=== PATIENT | male | born 1960 | race Caucasian/White ===

== ENCOUNTER 2022-05-05 08:31 | Day surgery (SDC) | payer BC, SELFPAY ==
[2022-04-21 14:50] VITALS: BMI 36.6
--- NOTE | 2022-05-04 10:41 | P.CONAN_ITS ---
Documented by User: Angeli Greenberg NP 05/04/22 10:41 HPI - Anesthesia Eval Consult details Narrative: 62yo M for Colonoscopy [facility] Past Medical History Medical History (Updated 04/21/22 @ 14:46 by Latisha Zavaleta, RN) Diabetes mellitus HTN (hypertension) Hyperlipidemia Surgical History Surgical History (Updated 04/21/22 @ 14:46 by Latisha Zavaleta, RN) Hx of colonoscopy Social History Social History Patient Tobacco Use Status: Never used Tobacco Use of substances other than those prescribed or required for medical reasons: No Are you DNR?: No Advance Directives: No Advance Directives Information Provided: Yes Meds Allergies Allergy/AdvReac Type Severity Reaction Status Date / Time No Known Allergies Allergy Verified 04/21/22 14:47 Home Medications Medication Instructions Recorded Confirmed Last Taken Type amlodipine 10 mg tablet 10 mg PO DAILY 04/21/22 04/21/22 Unknown History dulaglutide 3 mg/0.5 mL 3 mg subcut QWEEK 04/21/22 04/21/22 Unknown History subcutaneous pen injector (Trulicity) glyburide 2.5 mg tablet 2.5 mg PO DAILY 04/21/22 04/21/22 Unknown History hydrochlorothiazide 12.5 mg tablet 12.5 mg PO DAILY 04/21/22 04/21/22 Unknown History lisinopril 40 mg tablet 40 mg PO DAILY 04/21/22 04/21/22 Unknown History metformin 1,000 mg tablet 1,000 mg PO BIDWMEAL 04/21/22 04/21/22 Unknown History pioglitazone 30 mg tablet (Actos) 30 mg PO DAILY 04/21/22 04/21/22 Unknown History pravastatin 40 mg tablet 40 mg PO DAILY 04/21/22 04/21/22 Unknown History Exam Exam Date and Time: May 04, 2022 1041 Height,Weight and Vital Signs: Height 5 ft 7 in Weight 106.141 kg Assessment and Plan Assessment Anesthesia Assessment: Chart Reviewed Documented by User: Nigel Arrieta MD 05/05/22 10:42 [facility] Past Medical History Medical History (Updated 04/21/22 @ 14:46 by Latisha Zavaleta, RN) Diabetes mellitus HTN (hypertension) Hyperlipidemia Family History Family history of problems with anesthesia: No Surgical History Surgical History (Updated 04/21/22 @ 14:46 by Latisha Zavaleta, RN) Hx of colonoscopy History of Problems with Anesthesia: No Social History Social History Patient Tobacco Use Status: Never used Tobacco Use of substances other than those prescribed or required for medical reasons: No Are you DNR?: No Advance Directives: No Advance Directives Information Provided: Yes Meds Allergies Allergy/AdvReac Type Severity Reaction Status Date / Time No Known Allergies Allergy Verified 04/21/22 14:47 Home Medications Medication Instructions Recorded Confirmed Last Taken Type amlodipine 10 mg tablet 10 mg PO DAILY 04/21/22 04/21/22 Unknown History dulaglutide 3 mg/0.5 mL 3 mg subcut QWEEK 04/21/22 04/21/22 Unknown History subcutaneous pen injector (Trulicity) glyburide 2.5 mg tablet 2.5 mg PO DAILY 04/21/22 04/21/22 Unknown History hydrochlorothiazide 12.5 mg tablet 12.5 mg PO DAILY 04/21/22 04/21/22 Unknown History lisinopril 40 mg tablet 40 mg PO DAILY 04/21/22 04/21/22 Unknown History metformin 1,000 mg tablet 1,000 mg PO BIDWMEAL 04/21/22 04/21/22 Unknown History pioglitazone 30 mg tablet (Actos) 30 mg PO DAILY 04/21/22 04/21/22 Unknown History pravastatin 40 mg tablet 40 mg PO DAILY 04/21/22 04/21/22 Unknown History Exam Airway Mallampati Class: II TM Dist: >3cm Denture: Upper Loose/Missing/Broken Teeth: Yes (Multiple broken teeth) Assessment and Plan Assessment Anesthesia Assessment: Anesthesia Plan Discussed Final Anesthetic Review Family History of Problems with Anesthesia: No History of Problems with Anesthesia: No NPO: Yes ASA Class: III Final Preanesthetic Review: No Changes in Pt Med Stat, Meds/Allgs Chart Reviewed, Consent Obtained/Reviewed and Anes Risks/Benef Reviewed Patient Risk: Intermediate Procedure Risk: Low Anesthetic Plan Anesthetic Plan: MAC: Disposition: Standard PACU
[2022-05-05 09:22] VITALS: BMI 34.9
[2022-05-05 09:29] VITALS: BP 143/79; PULSE 90; RESP 16; TEMP 36.1; O2SAT 97
[2022-05-05] MEDS: Lactated Ringers 1,000 ML 100 ML IVCONT (09:43)
[2022-05-05 09:47] LABS: Glucose, Whole Blood 129 mg/dL (60-115)
--- NOTE | 2022-05-05 10:23 | MHC.SHP ---
Pre-Procedural Eval Section A Date of Service: 05/05/22 Section B Chief Complaint: screening Details of Present Illness: see H*P no changes Relevant Family History (Specify if Yes): No Relevant Social History: None Present Medications: see Short Stay Collaborative assessment Medical History: No relevant PMH History of Previous Operations: No relevant previous surgery Allergies: Allergies Allergy/AdvReac Type Severity Reaction Status Date / Time No Known Allergies Allergy Verified 04/21/22 14:47 Review of Systems Sugical H&P ROS: Negative: Constitution, Cardiovascular, Respiratory, Neurological, Psychiatric, Hem-Onc, Allergic/Immunologic, Gastrointestinal, Genitourinary, Musculoskeletal, Integumentary, Endocrine and Eyes/Ears/Nose/Throat Exam Surgical H&P Exam: Normal: HEENT, Normal: Heart, Normal: Lungs, Normal: Extremities, Normal: Abdomen, Normal: Skin and Normal: Neurological Plan Diagnosis/Plan: Unchanged I have reviewed the history and physical and performed a pertinent physical examination on my patient. No changes have occurred unless specified.
--- NOTE | 2022-05-05 11:02 | P.BOP_ITS ---
Brief Operative Note Date of Service: 05/05/22 Pre-op diagnosis: screening Post-op diagnosis: same Procedure: colonoscopy Surgeon: Alvaro Farley Anesthesia: MAC Was an Business Trainer used for this Procedure?: No Estimated blood loss (mL): 0 Pathology: none sent Condition: stable Disposition: PACU
[2022-05-05 11:05] VITALS: BP 111/65; PULSE 83; RESP 16; TEMP 36.1; O2SAT 93
[2022-05-05 11:20] VITALS: BP 137/66; PULSE 82; RESP 18; TEMP 36.1; O2SAT 94
--- NOTE | 2022-05-05 12:45 | OP_ITS ---
SURGEON: Alvaro Farley MD INDICATIONS: Colon cancer screening and prior history of adenomatous colon polyps. PREOPERATIVE DIAGNOSIS: POSTOPERATIVE DIAGNOSIS: PROCEDURE PERFORMED: Colonoscopy to the cecum. ESTIMATED BLOOD LOSS: COMPLICATIONS: ANESTHESIA: Monitored anesthesia care. ASSISTANTS: SPECIMENS: DESCRIPTION OF PROCEDURE: History and physical performed. The risks and benefits of the procedure were explained to the patient. Informed consent was obtained. The procedure was performed on 05/05/2022. The patient was placed in the left lateral decubitus position. A digital rectal exam was performed and was found to be normal. The Olympus pediatric video colonoscope was introduced into the rectum and advanced to the cecum without difficulty. The cecum was identified by transillumination, palpation, and identification of the ileocecal valve. Examination was performed. The scope was removed. He tolerated the procedure well and was taken to recovery area in stable condition. FINDINGS: The terminal ileum was not examined. The visualized colonic mucosa was normal. There was a large amount of liquid stool which limited sensitivity for examination for detection of small polyp. This was washed and suctioned as best possible. No polyps were identified. Retroflexed examination showed small internal hemorrhoids. IMPRESSION: Normal colonoscopy. RECOMMENDATION: 1. Follow up as needed. 2. Repeat colonoscopy is recommended in 5 years because of family history of colon cancer. MD SUSAN Gandara/CLARICE / [id number]
== END 2022-05-05 11:52 | disposition home or self-care (01) ==
PROVIDERS: PCP Pediatrics; Visit Provider Internal Medicine Gastroenterology
PROC: 0DJD8ZZ Inspection of Lower Intestinal Tract, Via Natural or Artificial Opening Endoscopic (ICD-10-PCS; CPT 45378; principal; 2022-05-05 10:00)
DX: Z12.11 Encounter for screening for malignant neoplasm of colon (principal); Z80.0 Family history of malignant neoplasm of digestive organs; Z86.010 Personal history of colon polyps; K64.8 Other hemorrhoids; I10 Essential (primary) hypertension; E78.5 Hyperlipidemia, unspecified; E11.9 Type 2 diabetes mellitus without complications; Z79.84 Long term (current) use of oral hypoglycemic drugs; Z79.899 Other long term (current) drug therapy
CPT/HCPCS: 45378; 82947